=== PATIENT | male | born 1965 | race Two or more races ===

== ENCOUNTER → 2020-04-15 10:28 | Outpatient (CLI) | payer OTHER | END | disposition home or self-care (01) | LOC: LAB 10:28 | PROVIDERS: ATTEND Urology | DX: N20.0 Calculus of kidney (principal); I11.0 Hypertensive heart disease with heart failure; N30.00 Acute cystitis without hematuria; B96.29 Other Escherichia coli [E. coli] as the cause of diseases classified elsewhere ==

== ENCOUNTER 2020-04-26 07:25 | Outpatient (CLI) | payer OTHER | END 2020-04-26 07:31 | disposition home or self-care (01) | LOC: TOM 07:25 | PROVIDERS: ATTEND Urology | DX: K76.0 Fatty (change of) liver, not elsewhere classified (principal); N20.0 Calculus of kidney; K57.90 Diverticulosis of intestine, part unspecified, without perforation or abscess without bleeding ==

== ENCOUNTER 2020-04-30 11:00 | Inpatient (IN) | payer OTHER ==
[~2020-04-30] VITALS: Ht 167.6 cm; Wt 325.0 kg
[2020-04-30] MEDS ORDERED: METFORMIN HCL850 MG (14:57)
[2020-04-30] MEDS ORDERED: GABAPENTIN300 MG (14:58)
[2020-04-30] MEDS ORDERED: AVAPRO150 MG PO (14:58)
[2020-04-30] MEDS ORDERED: MONTELUKAST SOD10 MG PO (14:58)
[2020-04-30] MEDS ORDERED: VERELAN120 MG PO (14:58)
[2020-04-30] MEDS ORDERED: LASIX40 MG PO (14:59)
[2020-04-30] MEDS ORDERED: ZYLOPRIM300 MG PO (14:59)
[2020-04-30] MEDS ORDERED: GLIPIZIDE XL5 MG PO (14:59)
[2020-04-30] MEDS ORDERED: PRILOSEC OTC20 MG PO (15:00)
[2020-04-30] MEDS ORDERED: MICRO-K 1010 MEQ PO (15:00)
[2020-04-30] MEDS ORDERED: PROVENTIL HFA6.7 GM IH (15:07)
[2020-04-30] MEDS ORDERED: SYMBICORT 16010.2 GM IH (15:08)
[2020-04-30] MEDS ORDERED: MUCINEX100 MG PO (15:08)
[2020-04-30] MEDS ORDERED: NASAL SPRAY30 M2 (15:09)
== END 2020-05-07 13:01 | disposition home or self-care (01) | DRG 660 ==
LOC: SURH 05-05 07:50 → O/R 05-05 07:50 → SURH 05-05 08:30
PROVIDERS: ADMIT Urology; ATTEND Urology
PROC: 0TC18ZZ Extirpation of Matter from Left Kidney, Via Natural or Artificial Opening Endoscopic (ICD-10-PCS; principal; 2020-05-05 08:30)
DX: N20.0 Calculus of kidney (principal); N39.0 Urinary tract infection, site not specified

== ENCOUNTER → 2020-05-10 10:23 | Outpatient (CLI) | payer OTHER ==
[~2020-05-10 10:23] MED LIST: AVAPRO150 MG PO; GABAPENTIN300 MG; GLIPIZIDE XL5 MG PO; LASIX40 MG PO; METFORMIN HCL850 MG; MICRO-K 1010 MEQ PO; MONTELUKAST SOD10 MG PO; MUCINEX100 MG PO; NASAL SPRAY30 M2; PRILOSEC OTC20 MG PO; PROVENTIL HFA6.7 GM IH; SYMBICORT 16010.2 GM IH; VERELAN120 MG PO; ZYLOPRIM300 MG PO
== END | disposition home or self-care (01) ==
LOC: LAB 10:23
PROVIDERS: ATTEND Urology
DX: N20.0 Calculus of kidney (principal); D62 Acute posthemorrhagic anemia